=== PATIENT | female | born 1960 | race Asian ===

== ENCOUNTER 2021-06-16 07:33 | Day surgery (SDC) | payer BC ==
[2021-06-12 12:11] VITALS: BMI 24.3
[2021-06-16] MEDS ORDERED: PROPOFOL 20 ML ONE ×4 (07:43)
[2021-06-16] MEDS ORDERED: LIDOCAINE HCL/PF 2% SDV 5ML VIAL ONE (07:43)
[2021-06-16] MEDS ORDERED: METOPROLOL TARTRATE 5 MG/5 ML VIAL ONE (08:42)
[2021-06-16 09:22] VITALS: PULSE 59
[2021-06-16 09:33] VITALS: BP 189/95; TEMP 97.7
== END 2021-06-16 09:40 | disposition home or self-care (01) ==
LOC: FASU-ENDO 07:33
PROVIDERS: ATTEND Internal Medicine Gastroenterology
PROC: 0DB98ZX Excision of Duodenum, Via Natural or Artificial Opening Endoscopic, Diagnostic (ICD-10-PCS; 2021-06-16)
PROC: 0DB68ZX Excision of Stomach, Via Natural or Artificial Opening Endoscopic, Diagnostic (ICD-10-PCS; 2021-06-16)
PROC: 0DJD8ZZ Inspection of Lower Intestinal Tract, Via Natural or Artificial Opening Endoscopic (ICD-10-PCS; principal; 2021-06-16 08:25)
DX: Z12.11 Encounter for screening for malignant neoplasm of colon (principal); K57.30 Diverticulosis of large intestine without perforation or abscess without bleeding; K63.89 Other specified diseases of intestine; K29.50 Unspecified chronic gastritis without bleeding; B96.81 Helicobacter pylori [H. pylori] as the cause of diseases classified elsewhere; R12 Heartburn
CPT/HCPCS: 88305-TC; 88342-TC